=== PATIENT | male | born 1995 | race Caucasian/White ===

== ENCOUNTER 2016-12-01 20:22 | Emergency (ER) | payer OTHER | END 2016-12-01 22:46 | disposition home or self-care (01) | LOC: ER 20:22 | DX: S52.611A Displaced fracture of right ulna styloid process, initial encounter for closed fracture (principal); S40.211A Abrasion of right shoulder, initial encounter; S50.311A Abrasion of right elbow, initial encounter; S00.81XA Abrasion of other part of head, initial encounter; S60.811A Abrasion of right wrist, initial encounter; V19.3XXA Pedal cyclist (driver) (passenger) injured in unspecified nontraffic accident, initial encounter; Y93.55 Activity, bike riding; Y92.009 Unspecified place in unspecified non-institutional (private) residence as the place of occurrence of the external cause | CPT/HCPCS: 70450; 73080; 73110; 90471; 90715; 99070; 99284-25 ==